=== PATIENT | female | born 1980 | race African-American/Black ===

== ENCOUNTER 2016-05-12 08:50 | Emergency (ER) | payer OTHER ==
[~2016-05-12] VITALS: Ht 157.5 cm; Wt 75.8 kg
[2016-05-12 09:14] LABS: URINE BILIRUBIN NEGATIVE (Negative); URINE BLOOD TRACE (Negative); URINE COLOR YELLOW; URINE GLUCOSE-RANDOM* NEGATIVE (Negative); URINE KETONES NEGATIVE (Negative); URINE NITRITE NEGATIVE (Negative); URINE PROTEIN (DIPSTICK) NEGATIVE (Negative); URINE SPECIFIC GRAVITY 1.025 (1.003-1.035); URINE UROBILINOGEN 0.2 E.U./dl (0.2-1.0)
[2016-05-12] MEDS ORDERED: HYDROCORTISONE30 G9 RECTAL (09:56)
[2016-05-12] MEDS ORDERED: COLACE100 MG PO (09:56)
[2016-05-12 10:32] VITALS: BP 105/59
[2016-05-14 14:12] LABS: CHLAMYDIA TRACHOMATIS-PCR Negative (Negative); NEISSERIA GONORRHEA-PCR Negative (Negative)
== END 2016-05-12 10:57 | disposition home or self-care (01) ==
LOC: ER 08:50
PROVIDERS: Nurse Practitioner
DX: K64.8 Other hemorrhoids (principal); Z20.2 Contact with and (suspected) exposure to infections with a predominantly sexual mode of transmission; N89.8 Other specified noninflammatory disorders of vagina; Z98.890 Other specified postprocedural states; F10.99 Alcohol use, unspecified with unspecified alcohol-induced disorder